=== PATIENT | male | born 1970 | race Caucasian/White ===

== ENCOUNTER 2019-06-28 18:19 | Emergency (ER) | payer MEDICAID ==
[~2019-06-28] VITALS: Ht 170.2 cm; Wt 80.0 kg
[2019-06-28] MEDS ORDERED: ASPIRIN 325MG TABLET PO ONE (18:30)
[2019-06-28] MEDS ORDERED: SODIUM CHLORIDE 0.9% 500 ML IV ONE (18:30)
[2019-06-28] MEDS ORDERED: KETOROLAC 30MG/ML VIAL IV ONE (19:00)
[2019-06-28 19:09] LABS: BASOPHILS % 0.5 % (0.0-2.0); EOSINOPHILS % 2.7 % (0.0-5.0); HEMATOCRIT. 47.4 % (42.0-52.0); LYMPHOCYTES % 24.7 % (20.0-50.0); MEAN CORPUSCULAR HEMOGLOBIN 29.5 pg (28.0-32.0); MEAN CORPUSCULAR VOLUME 87.2 fL (80.0-94.0); MEAN PLATELET VOLUME 7.9 fl (7.4-10.4); MONOCYTES % 10.3 % (2.0-8.0); NEUTROPHILS % 61.8 % (40.0-76.0); PLATELET 222 x1000/uL (130-400); RED BLOOD CELL COUNT 5.44 mill/uL (4.7-6.1); RED CELL DISTRIBUTION WIDTH 14.6 % (11.6-14.6)
[2019-06-28 19:10] LABS: CHLORIDE 106 mEq/L (98-107)
[2019-06-28 23:13] VITALS: BP 144/76
== END 2019-06-28 23:14 | disposition home or self-care (01) ==
LOC: ER 18:19
DX: R07.9 Chest pain, unspecified (principal); R55 Syncope and collapse; R73.9 Hyperglycemia, unspecified; I10 Essential (primary) hypertension; E78.00 Pure hypercholesterolemia, unspecified
CPT/HCPCS: 36415; 71045; 80053; 83880; 84484; 85025; 93005; 96361; 96374; 99285; J1885; J7040

== ENCOUNTER 2020-09-09 04:54 | Emergency (ER) | payer MEDICAID ==
[~2020-09-09] VITALS: Ht 162.6 cm; Wt 73.0 kg
[2020-09-09] MEDS ORDERED: SODIUM CHLORIDE 0.9% 1,000 ML IV ONE (05:15)
[2020-09-09] MEDS ORDERED: OLANZAPINE 10 MG/VIAL IM ONE (05:15)
[2020-09-09] MEDS ORDERED: LORAZEPAM 2MG/ML CPJ IM ONE (05:15)
[2020-09-09 05:50] LABS: BASOPHILS % 0.2 % (0.0-2.0); EOSINOPHILS % 1.1 % (0.0-5.0); HEMATOCRIT. 43.5 % (42.0-52.0); HEMOGLOBIN. 14.8 g/dL (14.0-18.0); LYMPHOCYTES % 19.2 % (20.0-50.0); MEAN CORPUSCULAR HEMOGLOBIN 29.6 pg (28.0-32.0); MEAN CORPUSCULAR VOLUME 86.9 fL (80.0-94.0); MEAN PLATELET VOLUME 7.7 fl (7.4-10.4); MONOCYTES % 11.2 % (2.0-8.0); NEUTROPHILS % 68.3 % (40.0-76.0); PLATELET 211 x1000/uL (130-400); RED CELL DISTRIBUTION WIDTH 13.6 % (11.6-14.6)
[2020-09-09 05:57] LABS: CHLORIDE 111 mEq/L (98-107)
[2020-09-09 06:00] LABS: ETHANOL BLOOD 108 mg/dL
[2020-09-09 07:06] LABS: CLARITY URINE CLEAR (CLEAR); COLOR URINE YELLOW (YELLOW); KETONES URINE 1+ (NEGATIVE); LEUKOCYTE ESTERASE URINE NEGATIVE (NEGATIVE); NITRITE URINE NEGATIVE (NEGATIVE); OCCULT BLOOD URINE 1+ (NEGATIVE); PROTEIN URINE 1+ (NEGATIVE); UROBILINOGEN URINE 0.2 E.U./dL (0.2-1.0)
[2020-09-09 07:31] LABS: *AMPHETAMINES SCREEN URINE NEGATIVE (NEGATIVE); *BARBITURATES SCREEN URINE NEGATIVE (NEGATIVE); *BENZODIAZEPINES SCREEN URINE NEGATIVE (NEGATIVE); *COCAINE SCREEN URINE NEGATIVE (NEGATIVE)
[2020-09-09 07:32] LABS: CANNABINOID URINE SCREEN NEGATIVE (NEGATIVE); METHADONE URINE SCREEN NEGATIVE (NEGATIVE); OPIATES URINE SCREEN NEGATIVE (NEGATIVE); PHENCYCLIDINE URINE SCREEN NEGATIVE (NEGATIVE)
[2020-09-09] MEDS ORDERED: ACETAMINOPHEN 325MG TABLET PO ONE (19:15)
[2020-09-10 13:11] VITALS: BP 143/93
== END 2020-09-10 13:22 ==
LOC: ER 04:54
DX: F32.9 Major depressive disorder, single episode, unspecified (principal); R45.851 Suicidal ideations; F15.10 Other stimulant abuse, uncomplicated; I10 Essential (primary) hypertension; E78.00 Pure hypercholesterolemia, unspecified; Z20.822 Contact with and (suspected) exposure to COVID-19
CPT/HCPCS: 36415; 80048; 80305; 80307; 80320; 80329; 81003; 85025; 87426; 96360; 96372; 99285; C9803; J2060; J3490; J7030; U0003; U0005; Z7610; G0480